=== PATIENT | male | born 1960 | race Caucasian/White ===

== ENCOUNTER 2021-05-23 19:53 | Emergency (ER) | payer OTHER ==
[~2021-05-23] VITALS: Ht 180.3 cm; Wt 117.9 kg
[2021-05-23 20:12] VITALS: BP 152/80
--- NOTE | 2021-05-23 20:25 | NUR ---
JEOVANNY ROSS AT PT'S SIDE DOING WOUND CARE
[2021-05-23] MEDS ORDERED: TDAP [DIPH/PERTUSSIS/TET] 0.5 ML VIAL IM ONE ×2 (21:10→21:30)
--- NOTE | 2021-05-23 21:33 | NUR ---
Patient discharged to home in stable condition. Written and verbal after care instructions given. Patient verbalizes understanding of instruction.
== END 2021-05-23 21:34 | disposition home or self-care (01) ==
LOC: ER 19:57
DX: S61.216A Laceration without foreign body of right little finger without damage to nail, initial encounter (principal); R55 Syncope and collapse; I10 Essential (primary) hypertension; Z88.1 Allergy status to other antibiotic agents; W22.8XXA Striking against or struck by other objects, initial encounter; Y93.89 Activity, other specified; Y92.89 Other specified places as the place of occurrence of the external cause; Y99.8 Other external cause status
CPT/HCPCS: 12001; 90471; 90715; 99283; A6403

== ENCOUNTER 2021-05-25 10:10 | Emergency (ER) | payer OTHER ==
[~2021-05-25] VITALS: Ht 180.3 cm; Wt 117.9 kg
--- NOTE | 2021-05-25 10:10 | NUR ---
BIBS FOR WOUND CHECK R 5TH FINGER LAC REPAIRED 2 DAYS AGO.
[2021-05-25 10:17] VITALS: BP 156/83
--- NOTE | 2021-05-25 10:43 | NUR ---
Patient discharged to home in stable condition. Written and verbal after care instructions given. Patient verbalizes understanding of instruction.
== END 2021-05-25 10:44 | disposition home or self-care (01) ==
LOC: ER 10:13
DX: S61.216D Laceration without foreign body of right little finger without damage to nail, subsequent encounter (principal); I10 Essential (primary) hypertension; Z88.1 Allergy status to other antibiotic agents; X58.XXXD Exposure to other specified factors, subsequent encounter

== ENCOUNTER → 2021-06-03 | Emergency (ER) | payer OTHER ==
[~2021-06-03] VITALS: Ht 180.3 cm; Wt 117.9 kg
[2021-06-03 13:32] VITALS: BP 147/75
--- NOTE | 2021-06-03 14:18 | NUR ---
Patient discharged to home in stable condition. Written and verbal after care instructions given. Patient verbalizes understanding of instruction.
--- NOTE | 2021-06-03 14:19 | NUR ---
[facility]
== END | disposition home or self-care (01) ==
LOC: ER 13:45
DX: S61.216D Laceration without foreign body of right little finger without damage to nail, subsequent encounter (principal); W26.8XXD Contact with other sharp object(s), not elsewhere classified, subsequent encounter

== ENCOUNTER 2021-09-25 16:57 | Emergency (ER) | payer BC, OTHER ==
[~2021-09-25] VITALS: Ht 180.3 cm; Wt 117.9 kg
[2021-09-25] MEDS ORDERED: FLUORESCEIN SODIUM OPHTH 1 EA STRIP ONE (17:15)
--- NOTE | 2021-09-25 17:20 | NUR ---
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 PT IS A/OX4 RR 22, STABLE AT THIS TIME.
[2021-09-25] MEDS ORDERED: TETRACAINE HCL 0.5% OPHTALMIC 15 ML BOTTLE OP ONE ×2 (18:00)
[2021-09-25] MEDS ORDERED: FLUORESCEIN SODIUM OPHTH 1 EA STRIP OP ONE ×2 (18:00)
[2021-09-25] MEDS ORDERED: IV NS 0.9% 1,000 ML BAG IV ONE (18:00)
[2021-09-25] MEDS ORDERED: diphenhydrAMINE HCL 25 MG CAPSULE PO ONE (18:00)
[2021-09-25] MEDS ORDERED: diphenhydrAMINE HCL 50 MG CAPSULE ONE (18:02)
[2021-09-25] MEDS ORDERED: OFLO5DRO RIGHTEYE (18:57)
[2021-09-25 19:23] VITALS: BP 135/80
== END 2021-09-25 19:10 | disposition home or self-care (01) ==
LOC: ER 17:02
DX: H10.211 Acute toxic conjunctivitis, right eye (principal); L25.3 Unspecified contact dermatitis due to other chemical products; I10 Essential (primary) hypertension; Z88.8 Allergy status to other drugs, medicaments and biological substances; Z79.899 Other long term (current) drug therapy
CPT/HCPCS: 99284; J7030; Q0163

== ENCOUNTER 2021-10-15 12:56 | Emergency (ER) | payer BC ==
[~2021-10-15] VITALS: Ht 180.3 cm; Wt 124.7 kg
[~2021-10-15 12:56] MED LIST: OFLO5DRO RIGHTEYE
--- NOTE | 2021-10-15 13:21 | NUR ---
To ER bed 3, c/o "started having nosebleed last night- stopped and started again", aaox3, breathing even and non labored, connected to monitor, awaiting md costa
--- NOTE | 2021-10-15 13:26 | NUR ---
DR NICE AT BEDSIDE
[2021-10-15] MEDS ORDERED: OXYMETAZOLINE HCL NASAL SPRAY 30 ML BOTTLE NS ONE ×3 (13:29→14:00)
[2021-10-15] MEDS ORDERED: TRANEXAMIC ACID 1,000 MG/10 ML VIAL NS ONE (14:00)
[2021-10-15] MEDS ORDERED: OXYM15MI4 NS (14:55)
--- NOTE | 2021-10-15 15:16 | NUR ---
Patient discharged to home in stable condition. Written and verbal after care instructions given. Patient verbalizes understanding of instruction.
[2021-10-15 15:24] VITALS: BP 142/88
== END 2021-10-15 15:25 | disposition home or self-care (01) ==
LOC: ER 13:10
DX: R04.0 Epistaxis (principal); I10 Essential (primary) hypertension; Z88.8 Allergy status to other drugs, medicaments and biological substances; Z79.899 Other long term (current) drug therapy

== ENCOUNTER 2023-04-13 14:51 | Emergency (ER) | payer BC ==
[~2023-04-13] VITALS: Ht 180.3 cm; Wt 122.0 kg
[~2023-04-13 14:51] MED LIST changes: +OXYM15MI4 NS
[2023-04-13] MEDS ORDERED: hydrALAZINE HCL IV 20 MG VIAL IV ONE (15:30)
[2023-04-13] MEDS ORDERED: hydrALAZINE HCL IV 20 MG VIAL ONE (15:43)
[2023-04-13 15:53] LABS: BASOPHILS % (AUTO) 0.8 % (0.0-2.0); EOSINOPHILS # (AUTO) 0.1 K/uL (0.0-0.7); EOSINOPHILS % (AUTO) 1.9 % (0.0-6.0); HEMATOCRIT 45 % (39-51); HEMOGLOBIN 15.4 g/dL (13.5-17.5); LYMPHOCYTES # (AUTO) 1.1 K/uL (0.8-4.8); MEAN CORPUSCULAR HEMOGLOBIN 30 PG (26.0-33.0); MEAN CORPUSCULAR HGB CONC 34 g/dl (31.0-36.0); MEAN CORPUSCULAR VOLUME 89 fL (80-96); MONOCYTES # (AUTO) 0.3 K/uL (0.1-1.30); MONOCYTES % (AUTO) 5.7 % (2.0-12.0); NEUTROPHILS % (AUTO) 66.6 % (43.0-81.0); PLATELET COUNT (AUTO) 149 K/uL (150-450); RED BLOOD CELL COUNT(AUTO) 5.07 MIL/uL (4.5-6.0); RED CELL DISTRIBUTION WIDTH 14.1 % (11.5-15.0); WHITE BLOOD COUNT (AUTO) 4.5 K/uL (4.3-11.0)
[2023-04-13 16:07] LABS: CALCIUM, SERUM 8.7 mg/dL (8.5-10.1); CARBON DIOXIDE 26 mmol/L (21-32); CHLORIDE 106 mmol/L (98-107); GLUCOSE 97 mg/dL (74-106); POTASSIUM 3.4 mmol/L (3.5-5.1); SODIUM SERUM 140 mmol/L (136-145); UREA NITROGEN, BLOOD 12 mg/dL (7-18)
[2023-04-13 16:25] LABS: ALANINE AMINOTRANSFERASE 35 U/L (12-78); ALBUMIN 3.6 g/dL (3.4-5.0); ALKALINE PHOSPHATASE 74 U/L (46-116); ASPARTATE AMINOTRANSFERASE 20 U/L (15-37); BILIRUBIN,DIRECT 0.1 mg/dL (0.0-0.2); BILIRUBIN,TOTAL 0.6 mg/dL (0.2-1.0)
[2023-04-13 16:53] VITALS: BP 150/79; TEMP 98.2; O2SAT 100
== END 2023-04-13 16:53 | disposition home or self-care (01) ==
LOC: ER 14:51
DX: I10 Essential (primary) hypertension (principal); Z88.8 Allergy status to other drugs, medicaments and biological substances
CPT/HCPCS: 99285; 96374; 71045; 93005; 85025; 80048; 80076; 36415; 84484; J0360

== ENCOUNTER 2023-04-16 01:54 | Emergency (ER) | payer BC, OTHER ==
[~2023-04-16] VITALS: Ht 180.3 cm; Wt 120.7 kg
[2023-04-16 02:44] LABS: HEMOGLOBIN 15.2 g/dL (13.5-17.5)
[2023-04-16 02:48] LABS: BASOPHILS % (AUTO) 0.4 % (0.0-2.0); EOSINOPHILS # (AUTO) 0.1 K/uL (0.0-0.7); EOSINOPHILS % (AUTO) 1.8 % (0.0-6.0); HEMATOCRIT 44 % (39-51); LYMPHOCYTES # (AUTO) 1.4 K/uL (0.8-4.8); LYMPHOCYTES % (AUTO) 25.4 % (20.0-44.0); MEAN CORPUSCULAR HEMOGLOBIN 31 PG (26.0-33.0); MEAN CORPUSCULAR HGB CONC 34 g/dl (31.0-36.0); MEAN CORPUSCULAR VOLUME 90 fL (80-96); MONOCYTES # (AUTO) 0.3 K/uL (0.1-1.30); MONOCYTES % (AUTO) 5.8 % (2.0-12.0); NEUTROPHILS # (AUTO) 3.8 K/uL (1.8-8.9); NEUTROPHILS % (AUTO) 66.6 % (43.0-81.0); PLATELET COUNT (AUTO) 145 K/uL (150-450); RED BLOOD CELL COUNT(AUTO) 4.93 MIL/uL (4.5-6.0); RED CELL DISTRIBUTION WIDTH 13.9 % (11.5-15.0); WHITE BLOOD COUNT (AUTO) 5.7 K/uL (4.3-11.0)
[2023-04-16 03:07] LABS: ALBUMIN 3.5 g/dL (3.4-5.0); BILIRUBIN,DIRECT 0.1 mg/dL (0.0-0.2); BILIRUBIN,TOTAL 0.5 mg/dL (0.2-1.0); CALCIUM, SERUM 8.3 mg/dL (8.5-10.1); CREATININE 1.1 mg/dL (0.6-1.3); POTASSIUM 3.4 mmol/L (3.5-5.1); TOTAL PROTEIN, SERUM 6.6 g/dL (6.4-8.2)
[2023-04-16 04:36] VITALS: BP 185/90; TEMP 98; O2SAT 96
== END 2023-04-16 04:36 | disposition home or self-care (01) ==
LOC: ER 01:55
DX: I10 Essential (primary) hypertension (principal); Z88.8 Allergy status to other drugs, medicaments and biological substances
CPT/HCPCS: 36415; 71045-TC; 80048-TC; 80076-TC; 84484-TC; 85025-TC

== ENCOUNTER 2023-04-17 09:45 | Emergency (ER) | payer BC, OTHER ==
[~2023-04-17] VITALS: Ht 180.3 cm; Wt 122.5 kg
[2023-04-17 10:07] VITALS: TEMP 97.7
[2023-04-17] MEDS ORDERED: hydrALAZINE HCL IV 20 MG VIAL ONE (10:47)
[2023-04-17] MEDS ORDERED: hydrALAZINE HCL IV 20 MG VIAL IV ONE (11:00)
[2023-04-17 11:25] LABS: BASOPHILS % (AUTO) 0.6 % (0.0-2.0); EOSINOPHILS # (AUTO) 0.1 K/uL (0.0-0.7); EOSINOPHILS % (AUTO) 1.1 % (0.0-6.0); HEMATOCRIT 47 % (39-51); HEMOGLOBIN 16.3 g/dL (13.5-17.5); LYMPHOCYTES % (AUTO) 17.6 % (20.0-44.0); MEAN CORPUSCULAR HEMOGLOBIN 31 PG (26.0-33.0); MEAN CORPUSCULAR HGB CONC 35 g/dl (31.0-36.0); MEAN CORPUSCULAR VOLUME 88 fL (80-96); MONOCYTES # (AUTO) 0.4 K/uL (0.1-1.30); MONOCYTES % (AUTO) 6.6 % (2.0-12.0); NEUTROPHILS % (AUTO) 74.1 % (43.0-81.0); PLATELET COUNT (AUTO) 154 K/uL (150-450); RED BLOOD CELL COUNT(AUTO) 5.26 MIL/uL (4.5-6.0); RED CELL DISTRIBUTION WIDTH 14.1 % (11.5-15.0); WHITE BLOOD COUNT (AUTO) 5.4 K/uL (4.3-11.0)
[2023-04-17 12:06] LABS: CREATININE 0.9 mg/dL (0.6-1.3); POTASSIUM 3.5 mmol/L (3.5-5.1)
[2023-04-17 12:59] VITALS: BP 134/80; O2SAT 98
== END 2023-04-17 13:00 | disposition home or self-care (01) ==
LOC: ER 09:49
DX: I10 Essential (primary) hypertension (principal); Z88.8 Allergy status to other drugs, medicaments and biological substances
CPT/HCPCS: 99284; 93005; 85025; 80048; 36415; 84484; J0360